=== PATIENT | male | born 1935 | race Caucasian/White ===

== ENCOUNTER 2016-11-27 21:03 | Inpatient (IN) | payer OTHER, MEDICARE ==
[~2016-11-27] VITALS: Ht 170.2 cm; Wt 99.8 kg
[~2016-11-27 21:03] MED LIST: ASPIRIN81 M1 PO; Aspirin E.C. PO; CENTRUM SILVER1 EAC3 PO; CIPRO500 MG PO; CIPROFLOXACIN500 M1 PO; CORTIZONE-10 PL57 GM TP; DIABETA,MICRON2.5 MG PO; GLYBURID-METFO1 EAC2 PO; GLYBURIDE2.5 MG PO; Glucophage PO; IMODIUM MS REL1 EACH PO; LEVAQUIN500 MG PO; LIPITOR10 MG PO; LO-DOSE ASPIRIN81 M1 PO; METFORMIN HCL500 MG PO; METOPROLOL SUC100 MG PO; METRONIDAZOLE500 MG PO; PRAVASTATIN SOD20 MG PO; PROBIOTIC1 EAC1 PO; PROTONIX40 MG PO; TOPROL XL100 MG PO; TUMS500 MG PO; TYLENOL EXTRA500 MG PO; Toprol XL PO; oxyCODONE PO
[2016-11-27 21:57] LABS: HEMATOCRIT 34.1 % (38.0-50.0); MCH 23.9 PG (29.0-34.0); MCV 82.4 FL (86-99); MEAN PLAT.VOLUME 10.2 uM^3 (9.0-12.4); PLATELET COUNT 161 K/uL (156-360); RBC DIS.WIDTH-CV 17.5 % (11.8-14.6); RBC DIS.WIDTH-SD 52.8 % (39-53); RED BLOOD COUNT 4.14 M/uL (4.00-5.50); WHITE BLOOD COUNT 5.4 K/uL (4.1-10.2)
[2016-11-27 21:59] LABS: TROP-I INTERPRETATION NEGATIVE; TROPONIN-I < 0.01 ng/mL (0.0-0.30)
[2016-11-27 22:07] LABS: CHLORIDE 107 mEq/L (99-109); POTASSIUM 4.9 mEq/L (3.7-5.4); SODIUM 141 mEq/L (136-147)
[2016-11-27 22:08] LABS: GLUCOSE 140 mg/dL (70-99)
[2016-11-27 22:10] LABS: ANION GAP 11 MEQ/L (2-14)
[2016-11-27 22:12] LABS: GFR ESTIMATE (CALCULATED) > 59 mL/min/
[2016-11-27 22:13] LABS: UREA NITROGEN (BUN) 16 mg/dL (9-23)
[2016-11-27 22:56] LABS: INTER. NORMALIZED RATIO 1.1; PROTHROMBIN TIME 10.7 (9.2-11.2); PTT 30.4 (25-32)
[2016-11-27 23:23] LABS: HEMATOCRIT 33.8 % (38.0-50.0); MCH 23.9 PG (29.0-34.0); MCHC 29.3 G/DL (30.0-36.0); MCV 81.6 FL (86-99); MEAN PLAT.VOLUME 10.8 uM^3 (9.0-12.4); PLATELET COUNT 162 K/uL (156-360); RBC DIS.WIDTH-CV 17.6 % (11.8-14.6); RBC DIS.WIDTH-SD 51.9 % (39-53); RED BLOOD COUNT 4.14 M/uL (4.00-5.50); WHITE BLOOD COUNT 5.9 K/uL (4.1-10.2)
[2016-11-28 03:55] VITALS: BP 132/60
[2016-11-28 05:23] LABS: TROP-I INTERPRETATION NEGATIVE; TROPONIN-I 0.06 ng/mL (0.0-0.30)
[2016-11-28 08:22] VITALS: BP 132/60
[2016-11-28 11:14] VITALS: BP 132/63
[2016-11-28 12:11] LABS: TROP-I INTERPRETATION INDETERMINATE; TROPONIN-I 0.35 ng/mL (0.0-0.30)
[2016-11-28 15:13] VITALS: BP 167/71
[2016-11-28 18:28] LABS: TROP-I INTERPRETATION INDETERMINATE; TROPONIN-I 0.53 ng/mL (0.0-0.30)
[2016-11-28 20:07] VITALS: BP 133/60
[2016-11-28 23:19] VITALS: BP 139/63
[2016-11-29 04:35] VITALS: BP 124/57
[2016-11-29 07:05] LABS: ANION GAP 6 MEQ/L (2-14); CHLORIDE 107 MEQ/L (99-109); GFR ESTIMATE (CALCULATED) > 59 mL/min/; GLUCOSE 123 mg/dL (70-99); SAMPLE HEMOLYSIS CHECK 0; SAMPLE ICTERIC CHECK 0; SAMPLE LIPEMIA CHECK 0; SODIUM 141 MEQ/L (136-147); UREA NITROGEN (BUN) 12 mg/dL (9-23)
[2016-11-29 07:32] VITALS: BP 140/63
[2016-11-29 11:16] VITALS: BP 136/65
[2016-11-29 20:30] VITALS: BP 136/58
[2016-11-30 01:56] VITALS: BP 148/68
[2016-11-30 05:24] VITALS: BP 171/72
[2016-11-30 06:49] LABS: HEMATOCRIT 30.3 % (38.0-50.0); MCH 23.5 PG (29.0-34.0); MEAN PLAT.VOLUME 10.9 uM^3 (9.0-12.4); PLATELET COUNT 128 K/uL (156-360); RBC DIS.WIDTH-SD 53.2 % (39-53); RED BLOOD COUNT 3.74 M/uL (4.00-5.50)
[2016-11-30 07:14] LABS: ANION GAP 11 MEQ/L (2-14); CHLORIDE 109 MEQ/L (99-109); GFR ESTIMATE (CALCULATED) > 59 mL/min/; GLUCOSE 131 mg/dL (70-99); POTASSIUM 3.8 MEQ/L (3.7-5.4); SAMPLE HEMOLYSIS CHECK 0; SAMPLE ICTERIC CHECK 0; SAMPLE LIPEMIA CHECK 0; SODIUM 143 MEQ/L (136-147); UREA NITROGEN (BUN) 11 mg/dL (9-23)
[2016-11-30 08:10] VITALS: BP 147/66
[2016-11-30] MEDS ORDERED: CLOPIDOGREL75 MG PO (10:12)
[2016-11-30] MEDS ORDERED: ASPIR-LOW81 MG PO (10:13)
[2016-11-30] MEDS ORDERED: PRAVASTATIN SOD40 MG PO (10:13)
[2016-11-30] MEDS ORDERED: METOPROLOL SUCC25 MG PO (10:13)
[2016-11-30] MEDS ORDERED: LISINOPRIL2.5 MG PO (10:13)
== END 2016-11-30 11:38 | disposition home or self-care (01) | DRG 247 ==
LOC: EME 21:03 → EDOF 11-28 02:30 → 5WEST 11-28 02:30 → 4EAST 11-29 20:23
PROVIDERS: Emergency Medicine; Internal Medicine; Internal Medicine Cardiovascular Disease; Nurse Practitioner Adult Health; Physician Assistant Medical
DX: I21.4 Non-ST elevation (NSTEMI) myocardial infarction (principal); E11.9 Type 2 diabetes mellitus without complications; I10 Essential (primary) hypertension; Z93.3 Colostomy status; E78.00 Pure hypercholesterolemia, unspecified; D50.9 Iron deficiency anemia, unspecified; Z87.891 Personal history of nicotine dependence; I25.2 Old myocardial infarction; R32 Unspecified urinary incontinence; E78.5 Hyperlipidemia, unspecified; Z86.718 Personal history of other venous thrombosis and embolism; Z86.711 Personal history of pulmonary embolism; I24.9 Acute ischemic heart disease, unspecified; E66.9 Obesity, unspecified; Z68.34 Body mass index [BMI] 34.0-34.9, adult; Z85.038 Personal history of other malignant neoplasm of large intestine
CPT/HCPCS: 71020; 71275; 74177; 80048; 82565; 84484; 84520; 85027; 85027 GA; 85347; 85610; 85730; 93005; 94799; 99281; 99285; C1725; C1769; C1874; C1887; G0378; J1644; J2250; J2270; J2405; J3010; J3246; J7030

== ENCOUNTER 2017-02-27 11:13 | Emergency (ER) | payer OTHER, MEDICARE ==
[~2017-02-27] VITALS: Ht 170.2 cm; Wt 96.8 kg
[~2017-02-27 11:13] MED LIST changes: +ASPIR-LOW81 MG PO; +CLOPIDOGREL75 MG PO; +LISINOPRIL2.5 MG PO; +METOPROLOL SUCC25 MG PO; +PRAVASTATIN SOD40 MG PO
[2017-02-27 12:48] LABS: HEMATOCRIT 28.6 % (38.0-50.0); MCHC 28.7 G/DL (30.0-36.0); MCV 80.3 FL (86-99); MEAN PLAT.VOLUME 10.6 uM^3 (9.0-12.4); PLATELET COUNT 160 K/uL (156-360); RBC DIS.WIDTH-CV 17.3 % (11.8-14.6); RBC DIS.WIDTH-SD 50.9 % (39-53); RED BLOOD COUNT 3.56 M/uL (4.00-5.50); WHITE BLOOD COUNT 7.4 K/uL (4.1-10.2)
[2017-02-27 12:58] LABS: CHLORIDE 107 mEq/L (99-109); POTASSIUM 4.4 mEq/L (3.7-5.4); SODIUM 139 mEq/L (136-147)
[2017-02-27 13:00] LABS: GLUCOSE 84 mg/dL (70-99)
[2017-02-27 13:01] LABS: ANION GAP 6 MEQ/L (2-14)
[2017-02-27 13:04] LABS: GFR ESTIMATE (CALCULATED) > 59 mL/min/
[2017-02-27 13:05] LABS: UREA NITROGEN (BUN) 16 mg/dL (9-23)
[2017-02-27 16:29] LABS: ADD MIUA? YES; BILIRUBIN NEGATIVE; BLOOD SMALL; COLOR YELLOW ((YELLOW)); GLUCOSE (STRIP) NEGATIVE; KETONES NEGATIVE; LEUKOCYTES LARGE; NITRITE POSITIVE; PROTEIN (STRIP) 30; SPECIFIC GRAVITY 1.038 (1.000-1.030); UROBILINOGEN 0.2 MG/DL (0.2-1.0)
[2017-02-27 16:59] LABS: BACTERIA RARE /HPF; EPITHELIAL CELLS NONE SEEN /HPF; MUCUS NONE SEEN /LPF; RED BLOOD CELLS 30-40 /HPF (0-5); UCUL ADDED? YES; WHITE BLOOD CELLS TNTC /HPF (0-5); WHITE BLOOD CELLS CLUMP FEW /HPF (0-5)
[2017-02-27] MEDS ORDERED: BACTRIM,SEPT1 TABLET PO (17:32)
[2017-02-27 18:04] VITALS: BP 126/62
== END 2017-02-27 18:00 | disposition home or self-care (01) ==
LOC: EME 11:13
PROVIDERS: Emergency Medicine
DX: C20 Malignant neoplasm of rectum (principal); N13.30 Unspecified hydronephrosis; D64.9 Anemia, unspecified; N39.0 Urinary tract infection, site not specified; I25.2 Old myocardial infarction; N39.490 Overflow incontinence; Z93.3 Colostomy status; I25.10 Atherosclerotic heart disease of native coronary artery without angina pectoris; I10 Essential (primary) hypertension; E78.5 Hyperlipidemia, unspecified; E11.9 Type 2 diabetes mellitus without complications; Z79.84 Long term (current) use of oral hypoglycemic drugs; Z85.46 Personal history of malignant neoplasm of prostate; Z87.891 Personal history of nicotine dependence
CPT/HCPCS: 74177; 80048; 81003; 85027; 86900; 86901; 87077; 87086 GA; 87147; 87186; 99281; 99285; J7030

== ENCOUNTER 2017-05-03 02:33 | Observation (INO) | payer OTHER, MEDICARE ==
[2017-05-03] VITALS (10 sets, daily range): BP systolic 104–159; BP diastolic 57–68
[~2017-05-03] VITALS: Ht 170.2 cm; Wt 96.0 kg
[~2017-05-03 02:33] MED LIST changes: +BACTRIM,SEPT1 TABLET PO
[2017-05-03 03:02] LABS: HEMATOCRIT 28.4 % (38.0-50.0); MCH 21.3 PG (29.0-34.0); MCHC 27.8 G/DL (30.0-36.0); MCV 76.5 FL (86-99); MEAN PLAT.VOLUME 10.8 uM^3 (9.0-12.4); PLATELET COUNT 160 K/uL (156-360); RBC DIS.WIDTH-CV 17.6 % (11.8-14.6); RBC DIS.WIDTH-SD 48.8 % (39-53); RED BLOOD COUNT 3.71 M/uL (4.00-5.50); WHITE BLOOD COUNT 6.1 K/uL (4.1-10.2)
[2017-05-03 03:04] LABS: CHLORIDE 108 mEq/L (99-109); SODIUM 142 mEq/L (136-147)
[2017-05-03 03:06] LABS: GLUCOSE 106 mg/dL (70-99)
[2017-05-03 03:08] LABS: ANION GAP 10 MEQ/L (2-14)
[2017-05-03 03:10] LABS: GFR ESTIMATE (CALCULATED) > 59 mL/min/
[2017-05-03 03:11] LABS: UREA NITROGEN (BUN) 17 mg/dL (9-23)
[2017-05-03 03:18] LABS: TROP-I INTERPRETATION NEGATIVE; TROPONIN-I < 0.01 ng/mL (0.0-0.30)
[2017-05-03 06:39] LABS: IRON 22 MCG/DL (35-150)
[2017-05-03 08:22] LABS: POINT-OF-CARE METER ID UU13113700
[2017-05-03] MEDS ORDERED: LO-DOSE ASPIRIN81 M2 PO (09:10)
[2017-05-03 09:16] LABS: TROP-I INTERPRETATION NEGATIVE; TROPONIN-I 0.01 ng/mL (0.0-0.30)
[2017-05-03 10:34] LABS: INTERNAL CONTROL VALID? YES
[2017-05-03 10:50] LABS: CHLORIDE 105 mEq/L (99-109); POTASSIUM 4.5 mEq/L (3.7-5.4); SODIUM 138 mEq/L (136-147)
[2017-05-03 10:52] LABS: GLUCOSE 115 mg/dL (70-99)
[2017-05-03 10:53] LABS: ANION GAP 11 MEQ/L (2-14)
[2017-05-03 10:56] LABS: GFR ESTIMATE (CALCULATED) > 59 mL/min/
[2017-05-03 10:57] LABS: UREA NITROGEN (BUN) 16 mg/dL (9-23)
[2017-05-03 12:02] LABS: POINT-OF-CARE METER ID UU13113831
[2017-05-03 12:47] LABS: HEMATOCRIT 25.3 % (38.0-50.0); MCH 21.2 PG (29.0-34.0); MCHC 27.7 G/DL (30.0-36.0); MCV 76.7 FL (86-99); MEAN PLAT.VOLUME 9.9 uM^3 (9.0-12.4); PLATELET COUNT 145 K/uL (156-360); RBC DIS.WIDTH-CV 17.6 % (11.8-14.6); RBC DIS.WIDTH-SD 48.9 % (39-53)
[2017-05-03 13:12] LABS: TROP-I INTERPRETATION NEGATIVE; TROPONIN-I 0.02 ng/mL (0.0-0.30)
[2017-05-03 17:16] LABS: POINT-OF-CARE METER ID UU13113831
[2017-05-03 19:14] LABS: TROP-I INTERPRETATION NEGATIVE; TROPONIN-I 0.01 ng/mL (0.0-0.30)
[2017-05-03 22:22] LABS: ABSOLUTE RETICULOCYTE CT. 0.1 M/uL (0.02-0.08); IMM.RETIC FRACTION 26.7 % (3-19); RETIC HGB EQUIVALENT 20.1 (28-36); RETICULOCYTE COUNT 2.7 % (0.5-1.8)
[2017-05-03 23:57] LABS: POINT-OF-CARE METER ID UU14162513
[2017-05-04 00:15] VITALS: BP 147/68
[2017-05-04 00:18] VITALS: BP 136/61
[2017-05-04 00:50] VITALS: BP 162/70
[2017-05-04 04:00] VITALS: BP 130/65
[2017-05-04 05:41] LABS: HEMATOCRIT 30.8 % (38.0-50.0); MCH 23.3 PG (29.0-34.0); MCHC 30.2 G/DL (30.0-36.0); MCV 77.2 FL (86-99); MEAN PLAT.VOLUME 10.3 uM^3 (9.0-12.4); PLATELET COUNT 146 K/uL (156-360); RBC DIS.WIDTH-CV 17.1 % (11.8-14.6); RBC DIS.WIDTH-SD 47.8 % (39-53); WHITE BLOOD COUNT 7.2 K/uL (4.1-10.2)
[2017-05-04 05:46] LABS: RED BLOOD COUNT 3.99 M/uL (4.00-5.50)
[2017-05-04 05:57] LABS: INTER. NORMALIZED RATIO 1.2; PROTHROMBIN TIME 13.1 SEC (10.2-12.9)
[2017-05-04 06:03] LABS: ANION GAP 9 MEQ/L (2-14); CHLORIDE 103 MEQ/L (99-109); GFR ESTIMATE (CALCULATED) > 59 mL/min/; GLUCOSE 119 mg/dL (70-99); POTASSIUM 4.3 MEQ/L (3.7-5.4); SAMPLE HEMOLYSIS CHECK 0; SAMPLE ICTERIC CHECK 0; SAMPLE LIPEMIA CHECK 0; SODIUM 140 MEQ/L (136-147); UREA NITROGEN (BUN) 14 mg/dL (9-23)
[2017-05-04 07:45] VITALS: BP 151/68
[2017-05-04 11:58] VITALS: BP 137/63
[2017-05-04 12:15] LABS: POINT-OF-CARE METER ID UU13113831
[2017-05-04] MEDS ORDERED: FERROUS SULFAT325 MG PO (13:02)
== END 2017-05-04 15:59 | disposition home or self-care (01) ==
LOC: EME → EDBD 02:33 → EME 02:33 → EDOF 04:31 → ENRESERV 04:33 → 5WEST 05:18
PROVIDERS: Emergency Medicine; Hospitalist; Internal Medicine Hematology & Oncology; Nurse Practitioner Adult Health
DX: R07.9 Chest pain, unspecified (principal); D64.9 Anemia, unspecified; I25.10 Atherosclerotic heart disease of native coronary artery without angina pectoris; Z95.5 Presence of coronary angioplasty implant and graft; Z85.038 Personal history of other malignant neoplasm of large intestine; Z93.3 Colostomy status; Z90.49 Acquired absence of other specified parts of digestive tract; I10 Essential (primary) hypertension; E78.5 Hyperlipidemia, unspecified; E11.9 Type 2 diabetes mellitus without complications; D68.1 Hereditary factor XI deficiency; N39.0 Urinary tract infection, site not specified; R32 Unspecified urinary incontinence; Z98.890 Other specified postprocedural states; Z82.49 Family history of ischemic heart disease and other diseases of the circulatory system; Z79.4 Long term (current) use of insulin; Z79.82 Long term (current) use of aspirin; Z79.84 Long term (current) use of oral hypoglycemic drugs; Z86.79 Personal history of other diseases of the circulatory system; Z88.1 Allergy status to other antibiotic agents
CPT/HCPCS: 71010; 71275; 80048; 80048 91; 81003; 82272; 82607; 82728; 82746; 82948; 83540; 83880; 84466; 84484; 85027; 85045; 85379; 85610; 85730; 86850; 86900; 86901; 86920; 93005; 99281; 99285; G0378; J1940; J7050; P9016; Q0138

== ENCOUNTER 2017-05-09 18:54 | Emergency (ER) | payer OTHER, MEDICARE ==
[~2017-05-09] VITALS: Ht 170.2 cm; Wt 94.2 kg
[~2017-05-09 18:54] MED LIST changes: +FERROUS SULFAT325 MG PO; +LO-DOSE ASPIRIN81 M2 PO
[2017-05-09 19:45] LABS: EOSINOPHIL (%) 1.2 % (0-5); EOSINOPHIL COUNT 0.1 K/uL (0-0.3); HEMATOCRIT 32.5 % (38.0-50.0); IMMATURE GRANULOCYTE (%) 1.2 % (0.0-0.7); IMMATURE GRANULOCYTE COUNT 0.1 K/uL; INSTRUMENT ABS NEUTROPHIL CT 5.2 K/uL; LYMPHOCYTE COUNT 0.7 K/uL (1.0-2.8); MCH 23.4 PG (29.0-34.0); MCHC 29.5 G/DL (30.0-36.0); MCV 79.1 FL (86-99); MONOCYTE (%) 8.9 % (3-12); MONOCYTE COUNT 0.6 K/uL (0-0.8); NEUTROPHIL (%) 77.7 % (45-76); NEUTROPHIL COUNT 5.2 K/uL (1.8-6.4); PLATELET COUNT 139 K/uL (156-360); RBC DIS.WIDTH-CV 19.8 % (11.8-14.6); RED BLOOD COUNT 4.11 M/uL (4.00-5.50); WHITE BLOOD COUNT 6.7 K/uL (4.1-10.2)
[2017-05-09 19:54] LABS: CHLORIDE 102 mEq/L (99-109); POTASSIUM 4.7 mEq/L (3.7-5.4); SODIUM 136 mEq/L (136-147)
[2017-05-09 19:56] LABS: GLUCOSE 171 mg/dL (70-99)
[2017-05-09 19:57] LABS: ANION GAP 10 MEQ/L (2-14)
[2017-05-09 19:59] LABS: GFR ESTIMATE (CALCULATED) 52 mL/min/
[2017-05-09 20:00] LABS: UREA NITROGEN (BUN) 16 mg/dL (9-23)
[2017-05-09 21:31] VITALS: BP 120/60
== END 2017-05-09 21:31 | disposition home or self-care (01) ==
LOC: EME 18:54
PROVIDERS: Emergency Medicine
DX: S51.012A Laceration without foreign body of left elbow, initial encounter (principal); S40.022A Contusion of left upper arm, initial encounter; W01.0XXA Fall on same level from slipping, tripping and stumbling without subsequent striking against object, initial encounter; E11.9 Type 2 diabetes mellitus without complications; Z79.84 Long term (current) use of oral hypoglycemic drugs; Z79.82 Long term (current) use of aspirin; Z85.038 Personal history of other malignant neoplasm of large intestine; Z90.49 Acquired absence of other specified parts of digestive tract; Z87.891 Personal history of nicotine dependence
CPT/HCPCS: 70450; 73090; 80048; 85025; 93005; 99281; 99284

== ENCOUNTER 2017-07-24 17:01 | Inpatient (IN) | payer OTHER, MEDICARE ==
[~2017-07-24] VITALS: Ht 170.2 cm; Wt 93.4 kg
[2017-07-24 18:26] LABS: MCHC 30.6 G/DL (30.0-36.0); PLATELET COUNT 143 K/uL (156-360); RBC DIS.WIDTH-CV 19.4 % (11.8-14.6); RBC DIS.WIDTH-SD 60.8 % (39-53); RED BLOOD COUNT 4.12 M/uL (4.00-5.50); WHITE BLOOD COUNT 7.3 K/uL (4.1-10.2)
[2017-07-24 18:41] LABS: CHLORIDE 105 mEq/L (99-109); POTASSIUM 4.4 mEq/L (3.7-5.4); SODIUM 138 mEq/L (136-147)
[2017-07-24 18:43] LABS: GLUCOSE 151 mg/dL (70-99)
[2017-07-24 18:44] LABS: ANION GAP 9 MEQ/L (2-14)
[2017-07-24 18:45] LABS: TOTAL BILIRUBIN 0.3 mg/dL (0.0-1.0)
[2017-07-24 18:47] LABS: ALKALINE PHOSPHATASE 78 IU/L (3-129); GFR ESTIMATE (CALCULATED) > 59 mL/min/
[2017-07-24 18:48] LABS: UREA NITROGEN (BUN) 17 mg/dL (9-23)
[2017-07-24 18:50] LABS: LIPASE 18 U/L (1.0-51.0)
[2017-07-24 21:34] LABS: EOSINOPHIL (%) 0.3 % (0-5); IMMATURE GRANULOCYTE (%) 0.3 % (0.0-0.7); LYMPHOCYTE COUNT 0.6 K/uL (1.0-2.8); MONOCYTE (%) 9.8 % (3-12); MONOCYTE COUNT 0.7 K/uL (0-0.8); NEUTROPHIL (%) 81.8 % (45-76)
[2017-07-24 23:06] LABS: ADD MIUA? YES; BILIRUBIN NEGATIVE; BLOOD SMALL; COLOR YELLOW ((YELLOW)); GLUCOSE (STRIP) NEGATIVE; KETONES NEGATIVE; LEUKOCYTES LARGE; NITRITE POSITIVE; PROTEIN (STRIP) 30; SPECIFIC GRAVITY 1.042 (1.000-1.030); UROBILINOGEN 0.2 MG/DL (0.2-1.0)
[2017-07-24 23:23] LABS: BACTERIA 3+ /HPF; CASTS NONE SEEN /LPF; CRYSTALS NONE SEEN; EPITHELIAL CELLS RARE /HPF; MUCUS NONE SEEN /LPF; RED BLOOD CELLS 0-5 /HPF (0-5); UCUL ADDED? YES; WHITE BLOOD CELLS TNTC /HPF (0-5)
[2017-07-25 01:38] VITALS: BP 143/65
[2017-07-25 04:22] VITALS: BP 127/65
[2017-07-25 08:12] LABS: POINT-OF-CARE METER ID UU13113831
[2017-07-25 09:03] LABS: HEMATOCRIT 30.8 % (38.0-50.0); MCH 26.1 PG (29.0-34.0); MCHC 30.5 G/DL (30.0-36.0); MCV 85.6 FL (86-99); MEAN PLAT.VOLUME 9.6 uM^3 (9.0-12.4); PLATELET COUNT 124 K/uL (156-360); RBC DIS.WIDTH-CV 19.1 % (11.8-14.6); RBC DIS.WIDTH-SD 60.8 % (39-53); WHITE BLOOD COUNT 4.4 K/uL (4.1-10.2)
[2017-07-25 09:22] LABS: ANION GAP 5 MEQ/L (2-14); CHLORIDE 105 MEQ/L (99-109); POTASSIUM 4.5 MEQ/L (3.7-5.4); SAMPLE HEMOLYSIS CHECK 0; SAMPLE ICTERIC CHECK 0; SAMPLE LIPEMIA CHECK 0; SODIUM 140 MEQ/L (136-147)
[2017-07-25 09:27] LABS: GFR ESTIMATE (CALCULATED) > 59 mL/min/; UREA NITROGEN (BUN) 14 mg/dL (9-23)
[2017-07-25 09:31] LABS: GLUCOSE 113 mg/dL (70-99)
[2017-07-25 10:59] VITALS: BP 143/65
[2017-07-25] MEDS ORDERED: GLUCOPHAGE500 MG PO (11:59)
[2017-07-25] MEDS ORDERED: GLYBURIDE2.5 MG PO (12:00)
[2017-07-25] MEDS ORDERED: ACETAMINOPHEN500 MG PO (12:00)
[2017-07-25] MEDS ORDERED: TUMS500 MG PO (12:01)
[2017-07-25] MEDS ORDERED: ACIDOPHILUS1 EAC4 PO (12:01)
[2017-07-25] MEDS ORDERED: CORTIZONE-10 1%28 GM TP (12:01)
[2017-07-25] MEDS ORDERED: DIAMODE2 MG PO (12:02)
[2017-07-25] MEDS ORDERED: CLOPIDOGREL75 MG PO (12:02)
[2017-07-25] MEDS ORDERED: TOPROL XL25 MG PO (12:02)
[2017-07-25] MEDS ORDERED: PRAVASTATIN SOD40 MG PO (12:02)
[2017-07-25] MEDS ORDERED: LO-DOSE ASPIRIN81 M1 PO (12:03)
[2017-07-25] MEDS ORDERED: LISINOPRIL2.5 MG PO (12:03)
[2017-07-25] MEDS ORDERED: IRON325 M1 PO (12:03)
[2017-07-25 13:00] LABS: POINT-OF-CARE METER ID UU13113700
[2017-07-25 14:53] VITALS: BP 162/69
[2017-07-25 16:56] LABS: POINT-OF-CARE METER ID UU13113700
[2017-07-25 20:14] VITALS: BP 161/95
[2017-07-25 21:42] LABS: POINT-OF-CARE METER ID UU13113831
[2017-07-25 23:56] VITALS: BP 132/61
[2017-07-26] VITALS (7 sets, daily range): BP systolic 121–178; BP diastolic 63–83
[2017-07-26 05:29] LABS: HEMATOCRIT 31.5 % (38.0-50.0); MCH 25.8 PG (29.0-34.0); MCHC 30.2 G/DL (30.0-36.0); MCV 85.6 FL (86-99); MEAN PLAT.VOLUME 9.6 uM^3 (9.0-12.4); PLATELET COUNT 131 K/uL (156-360); RBC DIS.WIDTH-CV 19.1 % (11.8-14.6); RBC DIS.WIDTH-SD 60.2 % (39-53); RED BLOOD COUNT 3.68 M/uL (4.00-5.50); WHITE BLOOD COUNT 4.1 K/uL (4.1-10.2)
[2017-07-26 05:36] LABS: ANION GAP 8 MEQ/L (2-14); CHLORIDE 107 MEQ/L (99-109); GFR ESTIMATE (CALCULATED) > 59 mL/min/; GLUCOSE 112 mg/dL (70-99); POTASSIUM 4.4 MEQ/L (3.7-5.4); SAMPLE HEMOLYSIS CHECK 0; SAMPLE ICTERIC CHECK 0; SAMPLE LIPEMIA CHECK 0; SODIUM 141 MEQ/L (136-147); UREA NITROGEN (BUN) 11 mg/dL (9-23)
[2017-07-26 07:48] LABS: POINT-OF-CARE METER ID UU13113831
[2017-07-26 12:09] LABS: POINT-OF-CARE METER ID UU13113831
[2017-07-26 17:28] LABS: POINT-OF-CARE METER ID UU13113831
[2017-07-26 21:29] LABS: POINT-OF-CARE METER ID UU13113831
[2017-07-27 04:16] VITALS: BP 140/63
[2017-07-27 05:41] LABS: HEMATOCRIT 31.4 % (38.0-50.0); MCH 26.2 PG (29.0-34.0); MCHC 30.6 G/DL (30.0-36.0); MCV 85.6 FL (86-99); MEAN PLAT.VOLUME 9.8 uM^3 (9.0-12.4); PLATELET COUNT 152 K/uL (156-360); RBC DIS.WIDTH-CV 18.9 % (11.8-14.6); RBC DIS.WIDTH-SD 59.6 % (39-53); RED BLOOD COUNT 3.67 M/uL (4.00-5.50); WHITE BLOOD COUNT 4.2 K/uL (4.1-10.2)
[2017-07-27 07:45] VITALS: BP 148/71
[2017-07-27 07:58] LABS: POINT-OF-CARE METER ID UU13113831
[2017-07-27] MEDS ORDERED: BACTRIM,SEPT1 TABLET PO (08:32)
[2017-07-27 10:45] LABS: GFR ESTIMATE (CALCULATED) > 59 mL/min/; UREA NITROGEN (BUN) 11 mg/dL (9-23)
== END 2017-07-27 10:35 | disposition home or self-care (01) | DRG 694 ==
LOC: EME 17:01 → EDOF 23:45 → ENRESERV 23:46 → 5WEST 07-25 01:18 → ENRESERV 07-25 08:16 → CANRESERV 07-25 08:16 → 5WEST 07-27 10:35
PROVIDERS: Hospitalist; Physician Assistant Medical
DX: N11.1 Chronic obstructive pyelonephritis (principal); N39.0 Urinary tract infection, site not specified; K43.5 Parastomal hernia without obstruction or gangrene; E11.65 Type 2 diabetes mellitus with hyperglycemia; N31.9 Neuromuscular dysfunction of bladder, unspecified; E11.40 Type 2 diabetes mellitus with diabetic neuropathy, unspecified; I25.10 Atherosclerotic heart disease of native coronary artery without angina pectoris; E11.21 Type 2 diabetes mellitus with diabetic nephropathy; I10 Essential (primary) hypertension; G89.29 Other chronic pain; M54.9 Dorsalgia, unspecified; M17.10 Unilateral primary osteoarthritis, unspecified knee; R32 Unspecified urinary incontinence; E78.5 Hyperlipidemia, unspecified; D64.9 Anemia, unspecified; E86.0 Dehydration; K21.9 Gastro-esophageal reflux disease without esophagitis; E66.9 Obesity, unspecified; B96.20 Unspecified Escherichia coli [E. coli] as the cause of diseases classified elsewhere; Z85.048 Personal history of other malignant neoplasm of rectum, rectosigmoid junction, and anus; Z86.79 Personal history of other diseases of the circulatory system; Z87.891 Personal history of nicotine dependence; Z90.79 Acquired absence of other genital organ(s); Z90.49 Acquired absence of other specified parts of digestive tract; Z87.440 Personal history of urinary (tract) infections; Z92.3 Personal history of irradiation; Z92.21 Personal history of antineoplastic chemotherapy; Z83.3 Family history of diabetes mellitus; Z95.5 Presence of coronary angioplasty implant and graft; Z93.3 Colostomy status; Z85.46 Personal history of malignant neoplasm of prostate; Z82.49 Family history of ischemic heart disease and other diseases of the circulatory system; Z68.32 Body mass index [BMI] 32.0-32.9, adult; I25.2 Old myocardial infarction
CPT/HCPCS: 74177; 80048; 80053; 81003; 82565; 82948; 83605; 83690; 84520; 85025; 85027; 87040; 87077; 87086; 87186; 99281; 99285; G0378; J0696; J0744; J1644; J1815; J2405; J3010; J3370; J7030; J7040

== ENCOUNTER 2017-12-08 10:55 | Emergency (ER) | payer OTHER, MEDICARE ==
[~2017-12-08] VITALS: Ht 170.2 cm; Wt 91.0 kg
[~2017-12-08 10:55] MED LIST changes: +ACETAMINOPHEN500 MG PO; +ACIDOPHILUS1 EAC4 PO; +CORTIZONE-10 1%28 GM TP; +DIAMODE2 MG PO; +GLUCOPHAGE500 MG PO; +IRON325 M1 PO; +TOPROL XL25 MG PO
[2017-12-08 11:44] LABS: BASOPHIL (%) 0.4 % (0-1); EOSINOPHIL (%) 0.4 % (0-5); HEMATOCRIT 32.2 % (38.0-50.0); HEMOGLOBIN 10.3 G/DL (12.5-16.6); IMMATURE GRANULOCYTE (%) 0.6 % (0.0-0.7); LYMPHOCYTE (%) 7.9 % (15-42); LYMPHOCYTE COUNT 0.6 K/uL (1.0-2.8); MCV 84.5 FL (86-99); MONOCYTE (%) 6.4 % (3-12); MONOCYTE COUNT 0.5 K/uL (0-0.8); NEUTROPHIL (%) 84.3 % (45-76); NEUTROPHIL COUNT 6.5 K/uL (1.8-6.4); PLATELET COUNT 147 K/uL (156-360); RBC DIS.WIDTH-CV 15.6 % (11.8-14.6); RBC DIS.WIDTH-SD 48.3 % (39-53); RED BLOOD COUNT 3.81 M/uL (4.00-5.50); WHITE BLOOD COUNT 7.8 K/uL (4.1-10.2)
[2017-12-08 11:51] LABS: INTER. NORMALIZED RATIO 1.2
[2017-12-08 11:54] LABS: CHLORIDE 101 mEq/L (99-109); POTASSIUM 4.1 mEq/L (3.7-5.4); SODIUM 137 mEq/L (136-147)
[2017-12-08 11:56] LABS: GLUCOSE 186 mg/dL (70-99)
[2017-12-08 12:00] LABS: GFR ESTIMATE (CALCULATED) > 59 mL/min/ (58.99-99999)
[2017-12-08 12:01] LABS: UREA NITROGEN (BUN) 14 mg/dL (9-23)
[2017-12-08] MEDS ORDERED: CLEOCIN300 MG PO (13:19)
[2017-12-08 13:41] VITALS: BP 129/84
== END 2017-12-08 13:53 | disposition home or self-care (01) ==
LOC: EME 10:55
PROVIDERS: Emergency Medicine
DX: K61.0 Anal abscess (principal); Z85.038 Personal history of other malignant neoplasm of large intestine; Z85.048 Personal history of other malignant neoplasm of rectum, rectosigmoid junction, and anus; Z93.3 Colostomy status; I10 Essential (primary) hypertension; E78.5 Hyperlipidemia, unspecified; I25.2 Old myocardial infarction; E11.9 Type 2 diabetes mellitus without complications; Z79.82 Long term (current) use of aspirin; Z79.84 Long term (current) use of oral hypoglycemic drugs; Z86.14 Personal history of Methicillin resistant Staphylococcus aureus infection; Z88.1 Allergy status to other antibiotic agents; Z87.891 Personal history of nicotine dependence
CPT/HCPCS: 80048; 85025; 85610; 99281; 99285

== ENCOUNTER 2017-12-10 06:34 | Emergency (ER) | payer OTHER, MEDICARE ==
[~2017-12-10] VITALS: Ht 170.2 cm; Wt 90.9 kg
[~2017-12-10 06:34] MED LIST changes: +CLEOCIN300 MG PO
[2017-12-10 07:55] LABS: BASOPHIL (%) 0.5 % (0-1); EOSINOPHIL (%) 1.3 % (0-5); EOSINOPHIL COUNT 0.1 K/uL (0-0.3); HEMATOCRIT 34.5 % (38.0-50.0); HEMOGLOBIN 10.9 G/DL (12.5-16.6); IMMATURE GRANULOCYTE (%) 0.5 % (0.0-0.7); LYMPHOCYTE (%) 9.4 % (15-42); LYMPHOCYTE COUNT 0.6 K/uL (1.0-2.8); MCH 26.7 PG (29.0-34.0); MCHC 31.6 G/DL (30.0-36.0); MCV 84.6 FL (86-99); MONOCYTE (%) 7.5 % (3-12); MONOCYTE COUNT 0.5 K/uL (0-0.8); NEUTROPHIL (%) 80.8 % (45-76); PLATELET COUNT 156 K/uL (156-360); RBC DIS.WIDTH-CV 15.4 % (11.8-14.6); RBC DIS.WIDTH-SD 47.4 % (39-53); RED BLOOD COUNT 4.08 M/uL (4.00-5.50); WHITE BLOOD COUNT 6.2 K/uL (4.1-10.2)
[2017-12-10 08:14] LABS: ALBUMIN 4.1 g/dL (3.2-4.8); CHLORIDE 102 mEq/L (99-109); POTASSIUM 4.4 mEq/L (3.7-5.4); SODIUM 139 mEq/L (136-147)
[2017-12-10 08:16] LABS: GLUCOSE 160 mg/dL (70-99); TOTAL PROTEIN 7.9 g/dL (6.4-8.3)
[2017-12-10 08:18] LABS: TOTAL BILIRUBIN 0.4 mg/dL (0.0-1.0)
[2017-12-10 08:20] LABS: ALKALINE PHOSPHATASE 82 IU/L (3-129); GFR ESTIMATE (CALCULATED) > 59 mL/min/ (58.99-99999)
[2017-12-10 08:21] LABS: UREA NITROGEN (BUN) 14 mg/dL (9-23)
[2017-12-10 08:22] LABS: AST (GOT) 13 IU/L (2-34)
[2017-12-10 08:23] LABS: ALT (GPT) 12 IU/L (3-49); LIPASE 24 U/L (1.0-51.0)
[2017-12-10 12:11] LABS: APPEARANCE CLEAR ((CLEAR)); BILIRUBIN NEGATIVE; BLOOD NEGATIVE; COLOR STRAW ((YELLOW)); GLUCOSE (STRIP) NEGATIVE; KETONES NEGATIVE; LEUKOCYTES NEGATIVE; NITRITE NEGATIVE; PROTEIN (STRIP) NEGATIVE; SPECIFIC GRAVITY 1.028 (1.000-1.030); UCUL ADDED? NO; UROBILINOGEN 0.2 MG/DL (0.2-1.0)
[2017-12-10 12:45] VITALS: BP 142/59
== END 2017-12-10 13:04 | disposition home or self-care (01) ==
LOC: EME 06:34
PROVIDERS: Emergency Medicine
DX: R10.9 Unspecified abdominal pain (principal); R42 Dizziness and giddiness; K59.00 Constipation, unspecified; K21.9 Gastro-esophageal reflux disease without esophagitis; I10 Essential (primary) hypertension; E78.5 Hyperlipidemia, unspecified; I25.2 Old myocardial infarction; Z93.3 Colostomy status; Z85.038 Personal history of other malignant neoplasm of large intestine; Z86.14 Personal history of Methicillin resistant Staphylococcus aureus infection; Z87.891 Personal history of nicotine dependence; Z79.82 Long term (current) use of aspirin; Z88.1 Allergy status to other antibiotic agents
CPT/HCPCS: 70450; 74177; 80053; 81003; 83690; 85025; 93005; 99281; 99285; J2405; J7030

== ENCOUNTER 2017-12-30 21:57 | Emergency (ER) | payer OTHER, MEDICARE ==
[~2017-12-30] VITALS: Ht 170.2 cm; Wt 92.5 kg
[2017-12-30 22:18] LABS: HEMATOCRIT 32.9 % (38.0-50.0); HEMOGLOBIN 10.5 G/DL (12.5-16.6); MCH 27.1 PG (29.0-34.0); MCHC 31.9 G/DL (30.0-36.0); PLATELET COUNT 121 K/uL (156-360); RBC DIS.WIDTH-CV 16.1 % (11.8-14.6); RBC DIS.WIDTH-SD 49.7 % (39-53); RED BLOOD COUNT 3.87 M/uL (4.00-5.50); WHITE BLOOD COUNT 7.9 K/uL (4.1-10.2)
[2017-12-30 22:25] LABS: ALBUMIN 4.1 g/dL (3.2-4.8); CHLORIDE 102 mEq/L (99-109); POTASSIUM 4.1 mEq/L (3.7-5.4); SODIUM 139 mEq/L (136-147)
[2017-12-30 22:28] LABS: GLUCOSE 174 mg/dL (70-99)
[2017-12-30 22:30] LABS: TOTAL BILIRUBIN 0.4 mg/dL (0.0-1.0)
[2017-12-30 22:31] LABS: ALKALINE PHOSPHATASE 84 IU/L (3-129); CREATININE 1.2 mg/dL (0.6-1.3); GFR ESTIMATE (CALCULATED) > 59 mL/min/ (58.99-99999)
[2017-12-30 22:32] LABS: UREA NITROGEN (BUN) 21 mg/dL (9-23)
[2017-12-30 22:33] LABS: AST (GOT) 11 IU/L (2-34)
[2017-12-30 22:34] LABS: ALT (GPT) 11 IU/L (3-49)
[2017-12-30 22:35] LABS: LIPASE 28 U/L (1.0-51.0)
[2017-12-31 00:45] LABS: APPEARANCE CLOUDY ((CLEAR)); BILIRUBIN NEGATIVE; BLOOD SMALL; COLOR YELLOW ((YELLOW)); GLUCOSE (STRIP) 50; KETONES NEGATIVE; LEUKOCYTES LARGE; NITRITE NEGATIVE; PROTEIN (STRIP) 30; SPECIFIC GRAVITY 1.026 (1.000-1.030); UROBILINOGEN 0.2 MG/DL (0.2-1.0)
[2017-12-31 01:00] LABS: BACTERIA 1+ /HPF; RED BLOOD CELLS 0-5 /HPF (0-5); UCUL ADDED? YES; WHITE BLOOD CELLS TNTC /HPF (0-5)
[2017-12-31 01:01] LABS: EPITHELIAL CELLS RARE /HPF
[2017-12-31 01:02] LABS: MUCUS 2+ /LPF
[2017-12-31] MEDS ORDERED: CIPRO500 MG PO (01:13)
[2017-12-31 01:47] VITALS: BP 132/59
== END 2017-12-31 01:48 | disposition home or self-care (01) ==
LOC: EME 21:57
DX: N39.0 Urinary tract infection, site not specified (principal); I10 Essential (primary) hypertension; E78.5 Hyperlipidemia, unspecified; K21.9 Gastro-esophageal reflux disease without esophagitis; E11.9 Type 2 diabetes mellitus without complications; I25.2 Old myocardial infarction; Z87.891 Personal history of nicotine dependence; Z87.440 Personal history of urinary (tract) infections; Z93.3 Colostomy status; Z85.038 Personal history of other malignant neoplasm of large intestine; Z86.14 Personal history of Methicillin resistant Staphylococcus aureus infection; Z79.84 Long term (current) use of oral hypoglycemic drugs; Z79.82 Long term (current) use of aspirin; Z88.1 Allergy status to other antibiotic agents
CPT/HCPCS: 74177; 80053; 81003; 83690; 85027; 87077; 87086; 87186; 99281; 99285; J1885; J7030

== ENCOUNTER 2018-03-02 09:06 | Inpatient (IN) | payer OTHER, MEDICARE ==
[~2018-03-02] VITALS: Ht 170.2 cm; Wt 87.5 kg
[~2018-03-02 09:06] MED LIST changes: -ACIDOPHILUS1 EAC4 PO; +CULTURELLE CAP1 EACH PO
[2018-03-02 11:04] LABS: APPEARANCE CLOUDY ((CLEAR)); BILIRUBIN NEGATIVE; BLOOD MODERATE; COLOR YELLOW ((YELLOW)); GLUCOSE (STRIP) NEGATIVE; KETONES NEGATIVE; LEUKOCYTES LARGE; NITRITE POSITIVE; PROTEIN (STRIP) 100; SPECIFIC GRAVITY 1.012 (1.000-1.030); UROBILINOGEN 0.2 MG/DL (0.2-1.0)
[2018-03-02 11:22] LABS: BASOPHIL (%) 0.5 % (0-1); EOSINOPHIL (%) 0.2 % (0-5); HEMATOCRIT 33.5 % (38.0-50.0); HEMOGLOBIN 10.3 G/DL (12.5-16.6); IMMATURE GRANULOCYTE (%) 0.5 % (0.0-0.7); LYMPHOCYTE (%) 7.6 % (15-42); LYMPHOCYTE COUNT 0.6 K/uL (1.0-2.8); MCH 25.8 PG (29.0-34.0); MCHC 30.7 G/DL (30.0-36.0); MONOCYTE (%) 7.6 % (3-12); MONOCYTE COUNT 0.6 K/uL (0-0.8); NEUTROPHIL (%) 83.6 % (45-76); NEUTROPHIL COUNT 7.1 K/uL (1.8-6.4); PLATELET COUNT 129 K/uL (156-360); RBC DIS.WIDTH-CV 15.9 % (11.8-14.6); RBC DIS.WIDTH-SD 47.8 % (39-53); RED BLOOD COUNT 3.99 M/uL (4.00-5.50); WHITE BLOOD COUNT 8.4 K/uL (4.1-10.2)
[2018-03-02 11:38] LABS: ALBUMIN 4.3 g/dL (3.2-4.8)
[2018-03-02 11:39] LABS: CHLORIDE 106 mEq/L (99-109); POTASSIUM 4.9 mEq/L (3.7-5.4); SODIUM 141 mEq/L (136-147)
[2018-03-02 11:41] LABS: GLUCOSE 130 mg/dL (70-99); TOTAL PROTEIN 7.8 g/dL (6.4-8.3)
[2018-03-02 11:42] LABS: BACTERIA 1+ /HPF; EPITHELIAL CELLS NONE SEEN /HPF; MUCUS NONE SEEN /LPF; RED BLOOD CELLS 0-5 /HPF (0-5); UCUL ADDED? YES; WHITE BLOOD CELLS TNTC /HPF (0-5)
[2018-03-02 11:43] LABS: TOTAL BILIRUBIN 0.4 mg/dL (0.0-1.0)
[2018-03-02 11:44] LABS: ALKALINE PHOSPHATASE 92 IU/L (3-129)
[2018-03-02 11:45] LABS: CREATININE 1.1 mg/dL (0.6-1.3); GFR ESTIMATE (CALCULATED) > 59 mL/min/ (58.99-99999)
[2018-03-02 11:46] LABS: AST (GOT) 13 IU/L (2-34); UREA NITROGEN (BUN) 19 mg/dL (9-23)
[2018-03-02 11:47] LABS: ALT (GPT) 13 IU/L (3-49)
[2018-03-02 11:48] LABS: LIPASE 240 U/L (1.0-51.0)
[2018-03-02] MEDS ORDERED: CIPRO500 MG PO (14:48)
[2018-03-02] MEDS ORDERED: TRAMADOL HCL50 MG PO (14:57)
[2018-03-02 16:31] LABS: HEMATOCRIT 32.6 % (38.0-50.0); HEMOGLOBIN 10.3 G/DL (12.5-16.6); MCH 26.3 PG (29.0-34.0); MCHC 31.6 G/DL (30.0-36.0); MCV 83.4 FL (86-99); PLATELET COUNT 96 K/uL (156-360); RBC DIS.WIDTH-SD 48.6 % (39-53); RED BLOOD COUNT 3.91 M/uL (4.00-5.50); WHITE BLOOD COUNT 6.5 K/uL (4.1-10.2)
[2018-03-02 16:33] LABS: SITE RR
[2018-03-02 16:34] LABS: COMMENTS - BLOOD GASES A+C+; DEVICE NC; O2 FLOW 2 L/MIN; PCO2 36 mm Hg (35-45); TOTAL RESP RATE 30 resp/min
[2018-03-02 16:35] LABS: BASE EXCESS -2.1 mEq/L (-3 to +3); BICARBONATE 22.3 mEq/L (22-26); CARBOXY HGB 1.9 % (0-5); METHEMOGLOBIN 0.9 % (0-1.5); PO2 72 mm Hg (80-100)
[2018-03-02 16:42] LABS: CHLORIDE 108 mEq/L (99-109); POTASSIUM 4.6 mEq/L (3.7-5.4); SODIUM 140 mEq/L (136-147)
[2018-03-02 16:44] LABS: GLUCOSE 177 mg/dL (70-99)
[2018-03-02 16:48] LABS: CREATININE 1.1 mg/dL (0.6-1.3); GFR ESTIMATE (CALCULATED) > 59 mL/min/ (58.99-99999)
[2018-03-02 16:49] LABS: UREA NITROGEN (BUN) 20 mg/dL (9-23)
[2018-03-02 16:56] LABS: TROP-I INTERPRETATION NEGATIVE; TROPONIN-I 0.01 ng/mL (0.0-0.30)
[2018-03-02] MEDS ORDERED: CRANBERRY450 M3 PO (19:12)
[2018-03-02] MEDS ORDERED: HIPREX1 GM PO (19:12)
[2018-03-02 21:45] VITALS: BP 110/56
[2018-03-03 06:26] LABS: HEMATOCRIT 29.7 % (38.0-50.0); MCHC 30.3 G/DL (30.0-36.0); MCV 85.8 FL (86-99); PLATELET COUNT 87 K/uL (156-360); RBC DIS.WIDTH-CV 16.5 % (11.8-14.6); RBC DIS.WIDTH-SD 51.5 % (39-53); RED BLOOD COUNT 3.46 M/uL (4.00-5.50); WHITE BLOOD COUNT 10.3 K/uL (4.1-10.2)
[2018-03-03 06:51] LABS: ALBUMIN 3.5 G/DL (3.2-4.8); ALKALINE PHOSPHATASE 56 IU/L (3-129); ALT (GPT) 8 IU/L (3-49); AST (GOT) 13 IU/L (2-34); CHLORIDE 106 MEQ/L (99-109); CREATININE 1.3 MG/DL (0.6-1.3); GFR ESTIMATE (CALCULATED) 56 mL/min/ (58.99-99999); GLUCOSE 165 mg/dL (70-99); LIPASE 12 U/L (1.0-51.0); POTASSIUM 5.2 MEQ/L (3.7-5.4); SODIUM 138 MEQ/L (136-147); TOTAL BILIRUBIN 0.5 MG/DL (0.0-1.0); TOTAL PROTEIN 5.8 G/DL (6.4-8.3); UREA NITROGEN (BUN) 23 mg/dL (9-23)
[2018-03-03 07:37] VITALS: BP 108/47
[2018-03-03 15:05] VITALS: BP 133/59
[2018-03-04 00:18] VITALS: BP 113/61
[2018-03-04 06:20] LABS: BASOPHIL (%) 0.3 % (0-1); EOSINOPHIL (%) 0.6 % (0-5); EOSINOPHIL COUNT 0.1 K/uL (0-0.3); HEMATOCRIT 27.9 % (38.0-50.0); HEMOGLOBIN 8.6 G/DL (12.5-16.6); IMMATURE GRANULOCYTE (%) 0.6 % (0.0-0.7); LYMPHOCYTE COUNT 0.4 K/uL (1.0-2.8); MCH 25.7 PG (29.0-34.0); MCHC 30.8 G/DL (30.0-36.0); MCV 83.3 FL (86-99); MONOCYTE (%) 7.7 % (3-12); MONOCYTE COUNT 0.6 K/uL (0-0.8); NEUTROPHIL (%) 85.8 % (45-76); NEUTROPHIL COUNT 6.7 K/uL (1.8-6.4); PLATELET COUNT 103 K/uL (156-360); RBC DIS.WIDTH-CV 15.9 % (11.8-14.6); RBC DIS.WIDTH-SD 48.6 % (39-53); RED BLOOD COUNT 3.35 M/uL (4.00-5.50); WHITE BLOOD COUNT 7.8 K/uL (4.1-10.2)
[2018-03-04 06:42] LABS: CHLORIDE 108 MEQ/L (99-109); CREATININE 0.9 MG/DL (0.6-1.3); GFR ESTIMATE (CALCULATED) > 59 mL/min/ (58.99-99999); GLUCOSE 133 mg/dL (70-99); SODIUM 140 MEQ/L (136-147); UREA NITROGEN (BUN) 17 mg/dL (9-23)
[2018-03-04 07:20] VITALS: BP 148/71
[2018-03-04 11:37] LABS: HEMOGLOBIN A1c (GLYCOHEMOGLOB) 6.6 % (Below 5.7)
[2018-03-04] MEDS ORDERED: AMOXICILLIN500 MG PO (12:30)
== END 2018-03-04 15:57 | disposition home or self-care (01) | DRG 689 ==
LOC: EME 09:06 → EDOF 20:11 → 5SOUTH 20:11 → ENRESERV 20:12 → 5SOUTH 21:16
PROVIDERS: Emergency Medicine; Hospitalist; Internal Medicine
DX: N39.0 Urinary tract infection, site not specified (principal); G93.41 Metabolic encephalopathy; I95.9 Hypotension, unspecified; N13.30 Unspecified hydronephrosis; D69.59 Other secondary thrombocytopenia; E11.21 Type 2 diabetes mellitus with diabetic nephropathy; N31.9 Neuromuscular dysfunction of bladder, unspecified; B96.20 Unspecified Escherichia coli [E. coli] as the cause of diseases classified elsewhere; E78.5 Hyperlipidemia, unspecified; I10 Essential (primary) hypertension; Z85.46 Personal history of malignant neoplasm of prostate; I25.10 Atherosclerotic heart disease of native coronary artery without angina pectoris; Z85.048 Personal history of other malignant neoplasm of rectum, rectosigmoid junction, and anus; Z87.440 Personal history of urinary (tract) infections; Z92.3 Personal history of irradiation; Z92.21 Personal history of antineoplastic chemotherapy; Z95.5 Presence of coronary angioplasty implant and graft; Z87.891 Personal history of nicotine dependence; E78.00 Pure hypercholesterolemia, unspecified; I25.2 Old myocardial infarction
CPT/HCPCS: 36600; 70450; 71045; 74177; 78582; 80048; 80048 91; 80053; 81003; 82607; 82728; 82746; 82803; 82948; 83036; 83605; 83690; 83880; 84484; 85025; 85027; 87040; 87077; 87086 GA; 87186; 93005; 94640; 94799; 97530 GP; 99281; 99285; A9540; A9567; J0744; J7030; J7040

== ENCOUNTER 2018-03-25 08:21 | Emergency (ER) | payer OTHER, MEDICARE ==
[~2018-03-25] VITALS: Ht 170.2 cm; Wt 81.5 kg
[~2018-03-25 08:21] MED LIST changes: +AMOXICILLIN500 MG PO; +CRANBERRY450 M3 PO; +HIPREX1 GM PO; +TRAMADOL HCL50 MG PO
[2018-03-25] MEDS ORDERED: PREDNISONE50 MG PO (10:37)
[2018-03-25 11:10] VITALS: BP 137/66
[2018-03-27] MEDS ORDERED: PREDNISONE50 MG PO (11:39)
== END 2018-03-25 11:11 | disposition home or self-care (01) ==
LOC: EME 08:21
DX: L50.0 Allergic urticaria (principal); E11.9 Type 2 diabetes mellitus without complications; Z79.84 Long term (current) use of oral hypoglycemic drugs; E78.5 Hyperlipidemia, unspecified; I10 Essential (primary) hypertension; I25.2 Old myocardial infarction; K21.9 Gastro-esophageal reflux disease without esophagitis; Z86.14 Personal history of Methicillin resistant Staphylococcus aureus infection; Z86.79 Personal history of other diseases of the circulatory system; Z85.038 Personal history of other malignant neoplasm of large intestine; Z93.3 Colostomy status; Z79.82 Long term (current) use of aspirin; Z87.891 Personal history of nicotine dependence
CPT/HCPCS: 99281; 99284; J1200; J2930; S0028

== ENCOUNTER 2018-03-31 10:35 | Day surgery (SDC) | payer OTHER, MEDICARE ==
[~2018-03-31] VITALS: Ht 170.2 cm; Wt 90.7 kg
[~2018-03-31 10:35] MED LIST changes: +PREDNISONE50 MG PO
[2018-03-31 10:58] VITALS: BP 161/70
[2018-03-31 14:05] VITALS: BP 160/70
[2018-03-31 14:35] VITALS: BP 133/61
== END 2018-03-31 14:48 | disposition home or self-care (01) ==
LOC: SDC 10:35
PROVIDERS: Urology
PROC: BT141ZZ Fluoroscopy of Kidneys, Ureters and Bladder using Low Osmolar Contrast (ICD-10-PCS; principal; 2018-03-31)
DX: N13.732 Vesicoureteral-reflux with reflux nephropathy with hydroureter, bilateral (principal); I10 Essential (primary) hypertension; E11.9 Type 2 diabetes mellitus without complications; K21.9 Gastro-esophageal reflux disease without esophagitis; R94.31 Abnormal electrocardiogram [ECG] [EKG]; E78.5 Hyperlipidemia, unspecified; I25.2 Old myocardial infarction; Z86.73 Personal history of transient ischemic attack (TIA), and cerebral infarction without residual deficits; Z87.891 Personal history of nicotine dependence; Z93.3 Colostomy status; Z79.82 Long term (current) use of aspirin; Z79.84 Long term (current) use of oral hypoglycemic drugs; Z85.048 Personal history of other malignant neoplasm of rectum, rectosigmoid junction, and anus; Z92.21 Personal history of antineoplastic chemotherapy; Z92.3 Personal history of irradiation
CPT/HCPCS: 82948; 87641; C1758; J0690